=== PATIENT | male | born 1950 ===

== ENCOUNTER 2022-06-22 09:59 | Outpatient (REF) | payer SELFPAY ==
--- NOTE | 2022-06-26 15:00 | MHC.AU.HFU ---
Hearing Instrument Follow-Up- Binaural Date of Visit: 06/22/22 Right Ear: Shoe Stitcher: O[employer]on OPN S 2 mini [facility] #[id number] Repair Warranty: 02/24/2023 Loss and Damage Warranty: 02/24/2023 Service Plan: NONE Battery Size: Rechargeable [employer] Architect: #3 85 gain Type of Dome: 8mm single base Type of Wax Guard: mini Fit Pro Wax Dispensed By: [facility] Date of Fittin01/28/2020 Left Ear: Shoe Stitcher: Oticon OPN S 2 mini [facility] [employer] #[id number] Repair Warranty: 02/24/2023 Loss and Damage Warranty: 02/24/2023 Service Plan: NONE Battery Size: Rechargeable [employer] Architect: #3 85 gain Type of Dome: 8mm single base Type of Wax Guard: mini Fit Pro Wax Dispensed By: [facility] Date of Fittin01/28/2020 Follow-Up Summary: [place] [facility] [place]. The left aid is not working. Listening check confirmed left aid and right aid amplifying. The left waste elimination was replaced under warranty. Order replacement waste elimination for stock. Cleaned both aids, microphones, replaced domes for both, and replaced wax guard for right aid. Both aids amplifying well now. Patient paid $50.00 for the repair and maintenance. Patient wanted programming changes. Discussed the service fees which would cost him extra today. My recommendation was to contact PCP to fax order for a new hearing test since last test was in 2019. If a change in hearing has occurred, then programming changes should be made. DID NOT READ SETTINGS INTO [facility] Recommendations:Recommendations: Please contact our clinic with any questions or concerns. Diagnosis Code(s):Primary Diagnosis: H90.3 Bilateral Sensorineural Hearing Loss Services Performed:JUAN Non-Quantity Charges: [facility] JUAN Charge (V5299) Signature:Provider: Carolin Marte, MARILOU-A
== END 2022-06-22 10:00 | disposition home or self-care (01) ==
LOC: HO.HAP 09:59
PROVIDERS: Visit Provider Internal Medicine
DX: Z46.1 Encounter for fitting and adjustment of hearing aid (principal)
CPT/HCPCS: 92592; V5299